=== PATIENT | female | born 1980 | race American Indian/Alaskan Native ===

== ENCOUNTER 2016-06-03 12:51 | Emergency (ER) | payer MEDICARE ==
[2016-06-03 14:31] VITALS: BP 147/79
== END 2016-06-03 23:21 | disposition left against medical advice (07) ==
LOC: ED 12:51
DX: T62.91XA Toxic effect of unspecified noxious substance eaten as food, accidental (unintentional), initial encounter (principal); R11.2 Nausea with vomiting, unspecified; R19.7 Diarrhea, unspecified; Y92.9 Unspecified place or not applicable; Z53.21 Procedure and treatment not carried out due to patient leaving prior to being seen by health care provider

== ENCOUNTER 2017-07-27 23:23 | Emergency (ER) | payer MEDICARE ==
[2017-07-28 01:02] LABS: Basophils # (Auto) 0.1 K/mm3 (0.0-0.1); Basophils % (Auto) 0.7 % (0.0-1.8); Eosinophils # (Auto) 0.2 K/mm3 (0.0-0.4); Hematocrit 45.6 % (30.3-42.9); Hemoglobin 14.2 gm/dl (10.1-14.3); Lymphocytes # (Auto) 1.5 K/mm3 (1.2-5.4); Lymphocytes % (Auto) 18.4 % (13.4-35.0); Mean Corpuscular HGB Conc 31 % (30-34); Mean Corpuscular Volume 72 fl (79-97); Monocytes # (Auto) 0.4 K/mm3 (0.0-0.8); Monocytes % (Auto) 4.5 % (0.0-7.3); Platelet Count 238 K/mm3 (140-440); Red Blood Count 6.34 M/mm3 (3.65-5.03); Red Cell Distribution Width 14.1 % (13.2-15.2)
[2017-07-28 01:06] LABS: Mean Corpuscular Hemoglobin 23 pg (28-32)
[2017-07-28 01:20] LABS: BUN/Creatinine Ratio 20; Blood Urea Nitrogen 12 mg/dL (7-17); Calcium 10.1 mg/dL (8.4-10.2); Hemolysis Index 0
[2017-07-28] MEDS ORDERED: GEODON IM ONE (03:10)
--- NOTE | 2017-07-28 03:21 | Emergency Department Report ---
ED Psych HPI - General Chief Complaint: Psych Stated Complaint: SI Time Seen by Provider: 07/28/17 03:13 Source: patient Mode of arrival: Ambulatory - History of Present Illness Initial Comments: Patient is 37 years old female history of bipolar disorder. Patient checked into triage stating that she have some suicidal thoughts, she stated that she usually cut herself. While patient escorted by security she became very combative, delusional, pressured speech, racing thoughts. Unable to obtain more history from the due to her current condition. Patient immediately put on 1013, Geodon 20 mg IM was ordered. MD Complaint: suicidal ideation Associated Psychiatric Symptoms: depression, suicidal ideation History of same: Yes Quality: constant - Related Data Allergies Allergy/AdvReac Type Severity Reaction Status Date / Time No Known Allergies Allergy Verified 07/28/17 03:11 ED Review of Systems ROS: Stated complaint: SI Other details as noted in HPI Comment: All other systems reviewed and negative Constitutional: denies: chills, fever Respiratory: denies: cough, orthopnea, shortness of breath, SOB with exertion, SOB at rest Cardiovascular: denies: chest pain, palpitations, dyspnea on exertion Gastrointestinal: denies: abdominal pain, nausea, vomiting, hematemesis ED Past Medical Hx - Past Medical History Previous Medical History?: Yes Hx Psychiatric Treatment: Yes (PTSD, Bipolar depression) - Surgical History Past Surgical History?: No - Social History Smoking Status: Current Every Day Smoker Substance Use Type: Alcohol ED Physical Exam - General Limitations: No Limitations General appearance: anxious, other (patient is very agitated, combative) - Head Head exam: Present: atraumatic, normocephalic - Eye Eye exam: Present: normal appearance - ENT ENT exam: Present: normal exam, normal orophraynx, mucous membranes moist - Neck Neck exam: Present: normal inspection, full ROM. Absent: tenderness, meningismus, lymphadenopathy, thyromegaly - Respiratory Respiratory exam: Present: normal lung sounds bilaterally. Absent: respiratory distress, wheezes, rales, rhonchi, stridor, chest wall tenderness, accessory muscle use, decreased breath sounds, prolonged expiratory - Cardiovascular Cardiovascular Exam: Present: regular rate, normal rhythm, normal heart sounds - GI/Abdominal GI/Abdominal exam: Present: soft, normal bowel sounds. Absent: distended, tenderness, guarding, rebound, rigid, organomegaly, mass, bruit, pulsatile mass , hernia - Extremities Exam Extremities exam: Present: normal inspection, full ROM, normal capillary refill - Neurological Exam Neurological exam: Present: alert, normal gait - Psychiatric Psychiatric exam: Present: agitated, manic, suicidal ideation - Skin Skin exam: Present: warm, intact, normal color ED Course Vital Signs 07/28/17 00:36 Temperature 97.4 F L Pulse Rate 100 H Respiratory 18 Rate Blood Pressure 142/88 O2 Sat by Pulse 96 Oximetry ED Medical Decision Making - Lab Data Result diagrams: 07/28/17 00:45 07/28/17 00:45 Critical care attestation.: If time is entered above; I have spent that time in minutes in the direct care of this critically ill patient, excluding procedure time. ED Disposition Clinical Impression: Suicidal ideation Disposition: DC/TX-65 PSY HOSP/PSY UNIT Is pt being admited?: No Condition: Stable Referrals: PRIMARY CARE, [Primary Care Provider] - 3-5 Days
[2017-07-28 03:57] LABS: Bilirubin,Urine NEG (Negative); Blood,Urine NEG (Negative); Color,Urine Yellow (Yellow); Hyaline Casts,Urine 13 /LPF; Mucus,Urine 1+ /HPF; WBC,Urine < 1.0 /HPF (0.0-6.0)
[2017-07-28 04:10] LABS: Amphetamine Screen,Urine PRESUMPTIVE NEGATIVE; Benzodiazepines Screen,Urine PRESUMPTIVE NEGATIVE; Methadone Screen,Urine PRESUMPTIVE NEGATIVE; Opiate Screen,Urine PRESUMPTIVE NEGATIVE
[2017-07-28 04:26] LABS: Cannabinoid Screen,Urine PRESUMPTIVE POSITIVE; Cocaine Screen,Urine PRESUMPTIVE POSITIVE
[2017-07-28] MEDS ORDERED: HABITROL TD ONE (11:00)
--- NOTE | 2017-07-28 14:26 | Consultation ---
History of Present Illness - Reason for Consult Consult date: 07/28/17 Reason for consult: Mental Health Evaluation Requesting physician: GOPI RAINES - Chief Complaint Chief complaint: "I am depressed" - History of Present Psychiatric Illness 37 y.o. AA female presenting to [facility] for SI's. Today the patient is calm and cooperative during the assessment. She stated that she has a hx of Bipolar DO, but have not been compliant on her medication nor seen a psychiatrist lately. She stated that she takes Geodon. She stated that her life is a "mess" and don' t have a reason to live. She stated that life isn't "right." She stated that she has attempted suicide in the past by overdose. She stated that she does not have a plan currently, but she don't know what she will do if she would be discharged. She stated that she haven't slept in days, the patient is positive for marijuana and cocaine. She stated being manic a couple months ago and was hospitalized. She denies HI's and AVH's. She rate her depression 10/10, with 10 being the worse. She denies a poor appetite. She denies excessive alcohol consumption (etoh). Medications and Allergies Allergies Allergy/AdvReac Type Severity Reaction Status Date / Time No Known Allergies Allergy Verified 07/28/17 03:11 Past psychiatric history - Past Medical History Past Medical History: No medical history Past Surgical History: No surgical history - past Psychiatric treatment and history psychiatric treatment history: Seen outpatient for Bipolar DO. Denies a fam psy hx. - Social History Social history: other (Homeless) Mental Status Exam - Vital signs Last Vital Signs Temp 98.4 F 07/28/17 10:42 Pulse 99 H 07/28/17 10:42 Resp 18 07/28/17 14:06 BP 102/53 07/28/17 10:42 Pulse Ox 98 07/28/17 10:42 - Exam Narrative exam: MSE: Appearance: calm, cooperative Behavior: regular eye contact Speech: regular rate and tone Mood: "sad and depressed" Affect: congruent to mood Thought Process: circumstantial Thought Content: denies HI's and AVH's Motor Activity: ambulatory Cognition: A/O x3 Insight: fair Judgment: fair Results Result Diagrams: 07/28/17 00:45 07/28/17 00:45 Abnormal lab results 07/28/17 07/28/17 07/28/17 Range/Units 00:45 00:45 00:45 RBC 6.34 H (3.65-5.03) M/mm3 Hct 45.6 H (30.3-42.9) % MCV 72 L (79-97) fl MCH 23 L (28-32) pg Seg Neutrophils % 73.4 H (40.0-70.0) % Sodium 135 L (137-145) mmol/L Chloride 90.9 L (98-107) mmol/L Creatinine 0.6 L (0.7-1.2) mg/dL Glucose 105 H (65-100) mg/dL Salicylates < 0.3 L (2.8-20.0) mg/dL All other labs normal. Assessment and Plan Assessment and plan: Impression: Hx of Bipolar DO. Today the patient is calm and cooperative during the assessment. DDx: R/O MDD Recommendation/Plan: Continue 1013 with placement to inpatient psy services. Start Geodon 20 mg PO BID for mood. Discussed possible metabolic side effects of Geodon with patient.
[2017-07-28] MEDS: GEODON PO SCH ×2 (16:22→21:44)
[2017-07-28 21:46] VITALS: BP 114/64
== END 2017-07-28 21:44 ==
LOC: ED 23:23
DX: F31.9 Bipolar disorder, unspecified (principal); F43.10 Post-traumatic stress disorder, unspecified; F17.200 Nicotine dependence, unspecified, uncomplicated; Z79.899 Other long term (current) drug therapy
CPT/HCPCS: 36415; 80048; 80307; 81001; 84703; 85025; 99285; G0480; J3486; 80320

== ENCOUNTER 2017-12-08 18:19 | Emergency (ER) | payer MEDICARE ==
[2017-12-09 01:12] VITALS: BP 111/71
== END 2017-12-09 01:33 | disposition left against medical advice (07) ==
LOC: ED 18:19
DX: Z76.0 Encounter for issue of repeat prescription (principal); F31.9 Bipolar disorder, unspecified; Z53.21 Procedure and treatment not carried out due to patient leaving prior to being seen by health care provider

== ENCOUNTER 2017-12-09 07:03 | Emergency (ER) | payer MEDICARE ==
[2017-12-09 08:11] LABS: HCG Qualitative,Urine Negative (Negative)
[2017-12-09 08:12] LABS: Basophils # (Auto) 0.1 K/mm3 (0.0-0.1); Basophils % (Auto) 1.1 % (0.0-1.8); Eosinophils # (Auto) 0.5 K/mm3 (0.0-0.4); Hematocrit 42.8 % (30.3-42.9); Hemoglobin 13.5 gm/dl (10.1-14.3); Lymphocytes # (Auto) 2.7 K/mm3 (1.2-5.4); Lymphocytes % (Auto) 36.4 % (13.4-35.0); Mean Corpuscular HGB Conc 32 % (30-34); Mean Corpuscular Volume 74 fl (79-97); Monocytes # (Auto) 0.5 K/mm3 (0.0-0.8); Monocytes % (Auto) 6.5 % (0.0-7.3); Platelet Count 141 K/mm3 (140-440); Red Blood Count 5.77 M/mm3 (3.65-5.03); Red Cell Distribution Width 14.3 % (13.2-15.2)
[2017-12-09 08:13] LABS: Bacteria,Urine 1+ /HPF (Negative); Bilirubin,Urine NEG (Negative); Blood,Urine LG (Negative); Color,Urine Yellow (Yellow); Hyaline Casts,Urine 4 /LPF; Mucus,Urine 2+ /HPF
[2017-12-09 08:14] LABS: BUN/Creatinine Ratio 13; Blood Urea Nitrogen 12 mg/dL (7-17); Calcium 9.7 mg/dL (8.4-10.2); Hemolysis Index 4
[2017-12-09 08:17] LABS: Mean Corpuscular Hemoglobin 24 pg (28-32)
[2017-12-09 08:21] LABS: Amphetamine Screen,Urine PRESUMPTIVE NEGATIVE; Benzodiazepines Screen,Urine PRESUMPTIVE NEGATIVE; Cannabinoid Screen,Urine PRESUMPTIVE NEGATIVE; Methadone Screen,Urine PRESUMPTIVE NEGATIVE; Opiate Screen,Urine PRESUMPTIVE NEGATIVE
[2017-12-09 08:35] LABS: Cocaine Screen,Urine PRESUMPTIVE POSITIVE
[2017-12-09] MEDS ORDERED: HABITROL TD ONE (13:09)
--- NOTE | 2017-12-09 13:14 | Emergency Department Report ---
HPI - General Chief Complaint: Psych Time Seen by Provider: 12/09/17 09:26 - HPI HPI: 37-year-old female, with a past medical history of PTSD, bipolar disorder and schizophrenia, presents to the emergency department with complaint of 2 days of having suicidal ideations. She denies having any specific plan as to how she would harm herself. She denies any visual or auditory hallucinations or any homicidal ideations. The patient says that she used to be on Seroquel but ran out of the medication a few weeks ago. She denies any illicit drug use. She is a tobacco smoker. Patient says that she has not had access to food and a couple of days. She is specifically asking if she can go to [facility]. ED Past Medical Hx - Past Medical History Hx Psychiatric Treatment: Yes (PTSD, Bipolar depression) Additional medical history: Schizophrenia - Surgical History Past Surgical History?: No - Social History Smoking Status: Current Every Day Smoker Substance Use Type: None ED Review of Systems ROS: Stated complaint: SUICIDAL Other details as noted in HPI Comment: All other systems reviewed and negative Constitutional: denies: chills, fever Eyes: denies: eye pain, eye discharge, vision change ENT: denies: ear pain, throat pain Respiratory: denies: cough, shortness of breath, wheezing Cardiovascular: denies: chest pain, palpitations Gastrointestinal: denies: abdominal pain, nausea, diarrhea Genitourinary: denies: urgency, dysuria, discharge Musculoskeletal: denies: back pain, joint swelling, arthralgia Skin: denies: rash, lesions Neurological: denies: headache, weakness, paresthesias Psychiatric: suicidal thoughts. denies: auditory hallucinations, visual hallucinations, homicidal thoughts Physical Exam - Physical Exam Vital Signs: Vital Signs 12/09/17 07:36 Temperature 98.2 F Pulse Rate 94 H Respiratory 16 Rate Blood Pressure 135/83 O2 Sat by Pulse 97 Oximetry Physical Exam: GENERAL: The patient is well-developed well-nourished. HENT: Normocephalic. Atraumatic. Patient has moist mucous membranes. EYES: Extraocular motions are intact. Pupils equal reactive to light bilaterally. NECK: Supple. Trachea is midline. CHEST/LUNGS: Clear to auscultation. There is no respiratory distress noted. HEART/CARDIOVASCULAR: Regular. There is no tachycardia. There is no murmur. ABDOMEN: Abdomen is soft, nontender. Patient has normal bowel sounds. There is no abdominal distention. SKIN: Skin is warm and dry. NEURO: The patient is awake, alert, and oriented. The patient is cooperative. The patient has no focal neurologic deficits. The patient has normal speech and gait. MUSCULOSKELETAL: There is no tenderness or deformity. There is no limitation range of motion. There is no evidence of acute injury. ED Course Vital Signs 12/09/17 07:36 Temperature 98.2 F Pulse Rate 94 H Respiratory 16 Rate Blood Pressure 135/83 O2 Sat by Pulse 97 Oximetry ED Medical Decision Making - Lab Data Result diagrams: 12/09/17 07:50 12/09/17 07:50 - Medical Decision Making The patient presents with some nonspecific depression and suicidal ideations without any plan. She has a history of PTSD, bipolar disorder and schizophrenia. Denies any current hallucinations. Patient was seen talking to herself prior to walking into the room. However during the H&P the patient is able to answer questions appropriately and focus on the tasks at hand. Labs are unremarkable except for UDS positive for cocaine. Vital signs stable throughout her ED course thus far. Patient has been admitted 1013 secondary to the suicidal ideations. She appears medically cleared for psychiatric placement. - Differential Diagnosis bipolar disorder, schizophrenia, schizoaffective, depression Critical Care Time: No Critical care attestation.: If time is entered above; I have spent that time in minutes in the direct care of this critically ill patient, excluding procedure time. ED Disposition Clinical Impression: Cocaine use, Suicidal ideations Disposition: DC/TX-65 PSY HOSP/PSY UNIT Is pt being admited?: No Condition: Stable Referrals: PRIMARY CARE [Primary Care Provider] - 3-5 Days Time of Disposition: 14:21
[2017-12-10] MEDS ORDERED: GEODON IM ONE (11:23)
[2017-12-10] MEDS ORDERED: ATIVAN ONE (11:24)
[2017-12-10] MEDS ORDERED: GEODON IM PRN (11:45)
[2017-12-10] MEDS ORDERED: ATIVAN IM PRN (11:46)
[2017-12-10 12:42] VITALS: BP 104/44
== END 2017-12-10 19:30 ==
LOC: EEVIPCON 07:03 → ED 07:03
DX: F31.9 Bipolar disorder, unspecified (principal); F20.9 Schizophrenia, unspecified; F17.200 Nicotine dependence, unspecified, uncomplicated; F14.10 Cocaine abuse, uncomplicated
CPT/HCPCS: 36415; 80048; 80307; 81001; 81025; 85025; 96372; 99285; G0480; J2060; J3486; 80320

== ENCOUNTER 2018-01-12 16:41 | Emergency (ER) | payer MEDICARE ==
[2018-01-12] MEDS ORDERED: GEODON IM ONE (18:18)
--- NOTE | 2018-01-12 18:25 | Emergency Department Report ---
ED Psych HPI - General Chief Complaint: Psych Stated Complaint: SUICIDAL Time Seen by Provider: 01/12/18 18:18 Source: patient Mode of arrival: Ambulatory - History of Present Illness Initial Comments: Patient is agitated and asking for food in the emergency room. MD Complaint: suicidal ideation -: Gradual Associated Psychiatric Symptoms: suicidal ideation, racing thoughts, auditory hallucinations History of same: Yes Quality: constant Improves With: none Worsens With: none Context: not taking psychiatric Associated Symptoms: denies other symptoms Treatments Prior to Arrival: none If Self Harm: admits thoughts of, has plan - Related Data Home Medications Medication Instructions Recorded Confirmed Last Taken Unobtainable 01/12/18 01/12/18 Unknown Allergies Allergy/AdvReac Type Severity Reaction Status Date / Time No Known Allergies Allergy Verified 07/28/17 03:11 ED Review of Systems ROS: Stated complaint: SUICIDAL Other details as noted in HPI Comment: All other systems reviewed and negative Constitutional: denies: chills, fever Eyes: denies: eye pain ENT: denies: ear pain Respiratory: denies: cough, shortness of breath Cardiovascular: denies: chest pain, palpitations Endocrine: no symptoms reported Gastrointestinal: denies: abdominal pain, nausea, vomiting, diarrhea Genitourinary: denies: urgency, dysuria Musculoskeletal: denies: back pain Skin: denies: rash, lesions Neurological: denies: headache, weakness, numbness Psychiatric: anxiety, auditory hallucinations, suicidal thoughts. denies: homicidal thoughts Hematological/Lymphatic: denies: easy bleeding, easy bruising ED Past Medical Hx - Past Medical History Previous Medical History?: Yes Hx Psychiatric Treatment: Yes (PTSD, Bipolar depression) Additional medical history: Schizophrenia - Surgical History Past Surgical History?: No - Social History Smoking Status: Never Smoker Substance Use Type: None - Medications Home Medications: Home Medications Medication Instructions Recorded Confirmed Last Taken Type Unobtainable 01/12/18 01/12/18 Unknown History ED Physical Exam - General Limitations: No Limitations General appearance: alert, anxious, other (Severe aggitation) - Head Head exam: Present: atraumatic, normocephalic, normal inspection - Eye Eye exam: Present: normal appearance, PERRL, EOMI Pupils: Present: normal accommodation - ENT ENT exam: Present: normal exam, normal orophraynx, mucous membranes moist - Neck Neck exam: Present: normal inspection, full ROM. Absent: tenderness - Respiratory Respiratory exam: Present: normal lung sounds bilaterally. Absent: respiratory distress, wheezes, rales, rhonchi, stridor - Cardiovascular Cardiovascular Exam: Present: regular rate, normal rhythm, normal heart sounds - GI/Abdominal GI/Abdominal exam: Present: soft, normal bowel sounds. Absent: distended, tenderness, guarding - Extremities Exam Extremities exam: Present: normal inspection, full ROM, normal capillary refill - Back Exam Back exam: Present: normal inspection, full ROM - Neurological Exam Neurological exam: Present: alert, oriented X3, CN II-XII intact - Psychiatric Psychiatric exam: Present: agitated, anxious, suicidal ideation - Skin Skin exam: Present: warm, dry, intact, normal color. Absent: rash ED Course Vital Signs 01/12/18 17:23 Temperature 98.4 F Pulse Rate 91 H Respiratory 16 Rate Blood Pressure 136/87 O2 Sat by Pulse 96 Oximetry - Reevaluation(s) Reevaluation #1: 01/12/18 22:57 Patient has calmed down and she is currently sleeping after receiving Geodon in the emergency room. She is medically cleared for psychiatric evaluation. ED Medical Decision Making - Lab Data Result diagrams: 01/12/18 19:40 01/12/18 19:40 - Radiology Data Radiology results: report reviewed - Medical Decision Making Acute Psychosis. Suicide Ideation. H/O Schizophrenia. Critical care attestation.: If time is entered above; I have spent that time in minutes in the direct care of this critically ill patient, excluding procedure time. ED Disposition Clinical Impression: Acute psychosis, Suicide ideation, History of schizophrenia, Cocaine abuse Disposition: DC/TX-65 PSY HOSP/PSY UNIT Is pt being admited?: No Does the pt Need Aspirin: No Condition: Stable Referrals: PRIMARY CARE, [Primary Care Provider] - 3-5 Days
[2018-01-12 20:01] LABS: Basophils # (Auto) 0.1 K/mm3 (0.0-0.1); Basophils % (Auto) 1.1 % (0.0-1.8); Eosinophils # (Auto) 0.3 K/mm3 (0.0-0.4); Eosinophils % (Auto) 5.5 % (0.0-4.3); Hematocrit 40.6 % (30.3-42.9); Hemoglobin 12.9 gm/dl (10.1-14.3); Lymphocytes % (Auto) 32.1 % (13.4-35.0); Mean Corpuscular HGB Conc 32 % (30-34); Mean Corpuscular Volume 74 fl (79-97); Monocytes # (Auto) 0.5 K/mm3 (0.0-0.8); Monocytes % (Auto) 7.5 % (0.0-7.3); Platelet Count 152 K/mm3 (140-440); Red Blood Count 5.46 M/mm3 (3.65-5.03); Red Cell Distribution Width 14.2 % (13.2-15.2)
[2018-01-12 20:02] LABS: Mean Corpuscular Hemoglobin 24 pg (28-32)
[2018-01-12 20:27] LABS: Alanine Aminotransferase 22 units/L (7-56); Albumin 4.3 g/dL (3.9-5); BUN/Creatinine Ratio 14; Blood Urea Nitrogen 13 mg/dL (7-17); Hemolysis Index 9
[2018-01-12 20:41] LABS: BUN/Creatinine Ratio 14; Blood Urea Nitrogen 13 mg/dL (7-17); Calcium 9.2 mg/dL (8.4-10.2); Hemolysis Index 5
[2018-01-12 22:01] LABS: Bilirubin,Urine NEG (Negative); Blood,Urine NEG (Negative); Color,Urine Yellow (Yellow); Mucus,Urine FEW /HPF
[2018-01-12 22:02] LABS: HCG Qualitative,Urine Negative (Negative)
[2018-01-12 22:26] LABS: Amphetamine Screen,Urine PRESUMPTIVE NEGATIVE; Benzodiazepines Screen,Urine PRESUMPTIVE NEGATIVE; Cannabinoid Screen,Urine PRESUMPTIVE NEGATIVE; Methadone Screen,Urine PRESUMPTIVE NEGATIVE; Opiate Screen,Urine PRESUMPTIVE NEGATIVE
[2018-01-12 22:40] LABS: Cocaine Screen,Urine PRESUMPTIVE POSITIVE
[2018-01-13 07:58] VITALS: BP 116/71
[2018-01-13] MEDS ORDERED: GEODON IM ONE (09:38)
[2018-01-13] MEDS ORDERED: WATER FOR INJ (PF) ONE (09:40)
[2018-01-13] MEDS ORDERED: K-DUR PO ONE ×2 (09:40→09:41)
[2018-01-13] MEDS ORDERED: K-DUR PO SCH (21:00)
== END 2018-01-13 14:37 ==
LOC: ED 16:41
DX: F23 Brief psychotic disorder (principal); R45.851 Suicidal ideations; F20.9 Schizophrenia, unspecified; F14.10 Cocaine abuse, uncomplicated; F31.9 Bipolar disorder, unspecified
CPT/HCPCS: 36415; 80048; 80053; 80307; 81001; 81025; 84443; 85025; 96372; 99285; G0480; J3486; 80320